=== PATIENT | male | born 1980 | race Caucasian/White ===

== ENCOUNTER 2019-01-19 12:00 | Inpatient (IN) | payer OTHER ==
[~2019-01-19] VITALS: Ht 190.5 cm; Wt 97.5 kg
--- NOTE | 2019-01-19 12:03 | NUR ---
HEART RATE IN 170'S. NOTIFIED DR ANNA. DR ANNA AT BEDSIDE. PATIENT DENIES ILLICIT DRUG USE.
--- OUTSIDE RECORDS SUMMARY | 2019-01-19 12:03 | XMS REPORT ---
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
--- OUTSIDE RECORDS SUMMARY | 2019-01-19 12:03 | XMS REPORT ---
Author Author Moses Barnett [facility] eClinicalWorks Address Unknown Phone Unavailable Care Team Providers Care Dietitian Teaching Name Role Phone Moses Barnett CP Unavailable Allergies, Adverse Reactions, Alerts Substance Reaction Event Type N.K.D.A. 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
--- OUTSIDE RECORDS SUMMARY | 2019-01-19 12:03 | XMS REPORT ---
Author Author Moses Barnett [facility] eClinicalWorks Address Unknown Phone Unavailable Care Team Providers Care Surface Water Technician Name Role Phone oMses Barnett CP Unavailable Allergies, Adverse Reactions, Alerts Substance Reaction Event Type N.K.D.A. 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
--- OUTSIDE RECORDS SUMMARY | 2019-01-19 12:03 | XMS REPORT ---
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
--- OUTSIDE RECORDS SUMMARY | 2019-01-19 12:03 | XMS REPORT ---
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
--- OUTSIDE RECORDS SUMMARY | 2019-01-19 12:03 | XMS REPORT ---
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
--- OUTSIDE RECORDS SUMMARY | 2019-01-19 12:03 | XMS REPORT ---
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
--- OUTSIDE RECORDS SUMMARY | 2019-01-19 12:03 | XMS REPORT ---
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
--- OUTSIDE RECORDS SUMMARY | 2019-01-19 12:03 | XMS REPORT ---
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
--- OUTSIDE RECORDS SUMMARY | 2019-01-19 12:03 | XMS REPORT ---
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
--- OUTSIDE RECORDS SUMMARY | 2019-01-19 12:03 | XMS REPORT ---
Author Author Moses Barnett [facility] eClinicalWorks Address Unknown Phone Unavailable Care Team Providers Care Freight Elevator Operator Name Role Phone Moses Barnett CP Unavailable Allergies, Adverse Reactions, Alerts Substance Reaction Event Type N.K.D.A. 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
--- OUTSIDE RECORDS SUMMARY | 2019-01-19 12:03 | XMS REPORT ---
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
--- OUTSIDE RECORDS SUMMARY | 2019-01-19 12:03 | XMS REPORT ---
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
--- OUTSIDE RECORDS SUMMARY | 2019-01-19 12:03 | XMS REPORT ---
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
--- OUTSIDE RECORDS SUMMARY | 2019-01-19 12:03 | XMS REPORT ---
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
--- OUTSIDE RECORDS SUMMARY | 2019-01-19 12:03 | XMS REPORT ---
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
--- OUTSIDE RECORDS SUMMARY | 2019-01-19 12:03 | XMS REPORT | Continuity of Care Document ---
Author Author [employer] Address Unknown Phone Unavailable Care Team Providers Care Meat Cutting Teacher Name Role Phone [employer] Unavailable Unavailable Problems Problem Status Onset Date Classification Date Reported Comments Source Primary insomnia Active Problem 10/10/2018 eCW: [facility] Neuropathy of left upper extremity Active Problem 10/10/2018 eCW: [facility] Cervical herniated disc Active Problem 10/10/2018 eCW: [facility] Hypersomnia Active Problem 10/10/2018 eCW: [facility] Elevated blood pressure reading Active Diagnosis 05/10/2017 eCW: [facility] Left upper quadrant pain Active Diagnosis 08/31/2017 eCW: [facility] Other specified counseling Active Diagnosis 04/22/2015 eCW: [facility] Pain in joint involving right pelvic region and thigh Active Diagnosis 09/30/2015 eCW: [facility] Right knee pain Active Diagnosis 09/30/2015 eCW: [facility] Neck pain Active Diagnosis 09/30/2015 eCW: [facility] Left foot pain Active Diagnosis 09/30/2015 eCW: [facility] Encounter for screening Active Diagnosis 07/30/2016 eCW: [facility] Exposure to sexually transmitted disease (STD) Active Diagnosis 03/11/2016 eCW: [facility] Hordeolum externum of left upper eyelid Active Diagnosis 05/10/2018 eCW: [facility] Medications Medication Details Route Status Patient Instructions Ordering Provider Order Date Source SMZ-TMP DS 1 tab(s) orally Active 800 mg-160 mg orally 2 times a day Barnett eCW: [facility] Allergies, Adverse Reactions, Alerts Substance Category Reaction Severity Reaction type Status Date Reported Comments Source N.K.D.A. Adverse Reaction Info Not Available Adverse Reaction Active 05/01/2018 eCW: [facility] Immunizations No Data Provided for This Section Results No Data Provided for This Section Pathology Reports No Data Provided for This Section Diagnostic Reports No Data Provided for This Section Consultation Notes No Data Provided for This Section Discharge Summaries No Data Provided for This Section History and Physicals No Data Provided for This Section Vital Signs Vital Sign Value Date Comments Source Height 75 05/01/2018 eCW: [facility] Weight 215 05/01/2018 eCW: [facility] Temperature Oral (F) 96.3 F 05/01/2018 eCW: [facility] Diastolic (mm Hg) 72 05/01/2018 eCW: [facility] Systolic (mm Hg) 124 05/01/2018 eCW: [facility] Height 75 08/23/2017 eCW: [facility] Weight 225 08/23/2017 eCW: [facility] Temperature Oral (F) 96.8 F 08/23/2017 eCW: [facility] Diastolic (mm Hg) 90 08/23/2017 eCW: [facility] Systolic (mm Hg) 126 08/23/2017 eCW: [facility] Height 75 05/02/2017 eCW: [facility] Weight 222 05/02/2017 eCW: [facility] Temperature Oral (F) 97.0 F 05/02/2017 eCW: [facility] Diastolic (mm Hg) 70 05/02/2017 eCW: [facility] Systolic (mm Hg) 124 05/02/2017 eCW: [facility] Height 75 12/01/2016 eCW: [facility] Weight 215 12/01/2016 eCW: [facility] Temperature Oral (F) 97.4 F 12/01/2016 eCW: [facility] Diastolic (mm Hg) 80 12/01/2016 eCW: [facility] Systolic (mm Hg) 132 12/01/2016 eCW: [facility] Height 75 07/22/2016 eCW: [facility] Weight 212 07/22/2016 eCW: [facility] Temperature Oral (F) 96.8 F 07/22/2016 eCW: [facility] Diastolic (mm Hg) 90 07/22/2016 eCW: [facility] Systolic (mm Hg) 126 07/22/2016 eCW: [facility] Height 75 02/13/2016 eCW: [facility] Weight 207 02/13/2016 eCW: [facility] Temperature Oral (F) 97.3 F 02/13/2016 eCW: [facility] Diastolic (mm Hg) 82 02/13/2016 eCW: [facility] Systolic (mm Hg) 140 02/13/2016 eCW: [facility] Height 75 09/25/2015 eCW: [facility] Weight 202 09/25/2015 eCW: [facility] Temperature Oral (F) 97.2 F 09/25/2015 eCW: [facility] Diastolic (mm Hg) 90 09/25/2015 eCW: [facility] Systolic (mm Hg) 140 09/25/2015 eCW: [facility] Height 75 04/10/2015 eCW: [facility] Weight 190 04/10/2015 eCW: [facility] Temperature Oral (F) 962 F 04/10/2015 eCW: [facility] Diastolic (mm Hg) 82 04/10/2015 eCW: [facility] Systolic (mm Hg) 118 04/10/2015 eCW: [facility] Encounters Location Location Details Encounter Type Encounter Number Reason For Visit Attending Provider ADM Date DC Date Status Source [facility] Est care- referral [id number] 04/10/2015 04/10/2015 eCW: [facility] Est care- referral [id number] 04/10/2015 04/10/2015 eCW: [facility] Est care- referral [id number] 04/10/2015 04/10/2015 eCW: [facility] Est care- referral [id number] 04/10/2015 04/10/2015 eCW: [facility] Est care- referral [id number] 04/10/2015 04/10/2015 eCW: [facility] Est care- referral [id number] 04/10/2015 04/10/2015 eCW: [facility] Outpatient [id number] Moses Barnett 09/25/2015 Active [facility] poss hernia [id number] 09/25/2015 09/25/2015 eCW: [facility] poss hernia [id number] 09/25/2015 09/25/2015 eCW: [facility] poss hernia [id number] 09/25/2015 09/25/2015 eCW: [facility] poss hernia [id number] 09/25/2015 09/25/2015 eCW: [facility] Messge [id number] 09/26/2015 09/26/2015 eCW: [facility] Messge [id number] 09/26/2015 09/26/2015 eCW: [facility] Messge [id number] 09/26/2015 09/26/2015 eCW: [facility] Messge [id number] 09/26/2015 09/26/2015 eCW: [facility] Messge [id number] 09/26/2015 09/26/2015 eCW: [facility] doctors note [id number] 12/08/2015 12/08/2015 eCW: [facility] doctors note [id number] 12/08/2015 12/08/2015 eCW: [facility] doctors note [id number] 12/08/2015 12/08/2015 eCW: [facility] STD check - fasting labs [id number] 02/13/2016 02/13/2016 eCW: [facility] STD check - fasting labs [id number] 02/13/2016 02/13/2016 eCW: [facility] left side shoulder/neck pain causing numbness and tingling in left hand and arm [id number] 07/22/2016 07/22/2016 eCW: [facility] Procedures No Data Provided for This Section Assessment and Plan No Data Provided for This Section Plan of Care No Data Provided for This Section Social History Social History Date Source Social History ElementQualifiersDate Reported Advance Directive . pt has living will July 22, 2016 Difficulty with eating/meal preparation . No July 22, 2016 Smoke Exposure: . Second Hand Smoke Exposure: No July 22, 2016 Difficulty with bathing/grooming . No July 22, 2016 Ambulatory Status: . Independent July 22, 2016 Current Physical Activity as compared to last year: . None July 22, 2016 Tobacco Use: No. Are you a: never smoker July 22, 2016 Physical Activity: . Exercises Regularly No, Recommend exercising 10 to 20 minutes everyday Yes July 22, 2016 Children: . 1 daughter July 22, 2016 Marital Status: . July 22, 2016 Recreational/Illicit drug use: no. July 22, 2016 Alcohol: yes. occasionally July 22, 2016 07/22/2016 eCW: [facility] Family History Value Date Source QualifierDescriptionCommentDate Reported Maternal Grand Mother Comment not available July 22, 2016 Paternal Grand Mother Comment not available July 22, 2016 Siblings alive Melanoma July 22, 2016 Maternal Grand Father Comment not available July 22, 2016 Children alive Comment not available July 22, 2016 Maternal aunt Comment not available July 22, 2016 Father alive healthy July 22, 2016 Paternal Grand Father Comment not available July 22, 2016 Paternal uncle Comment not available July 22, 2016 Mother alive Comment not available July 22, 2016 Paternal aunt Comment not available July 22, 2016 Maternal uncle Comment not available July 22, 2016 07/30/2016 eCW: [facility] [employer] [facility] Practice QualifierDescriptionCommentDate Reported Maternal Grand Mother Comment not available Feb 13, 2016 Paternal Grand Mother Comment not available Feb 13, 2016 Siblings alive Melanoma Feb 13, 2016 Maternal Grand Father Comment not available Feb 13, 2016 Children alive Comment not available Feb 13, 2016 Maternal aunt Comment not available Feb 13, 2016 Father alive healthy Feb 13, 2016 Paternal Grand Father Comment not available Feb 13, 2016 Paternal uncle Comment not available Feb 13, 2016 Mother alive Comment not available Feb 13, 2016 Paternal aunt Comment not available Feb 13, 2016 Maternal uncle Comment not available Feb 13, 2016 03/11/2016 eCW: [facility] [employer] [facility] Practice QualifierDescriptionCommentDate Reported Maternal Grand Mother Comment not available September 25, 2015 Paternal Grand Mother Comment not available September 25, 2015 Siblings alive Melanoma September 25, 2015 Maternal Grand Father Comment not available September 25, 2015 Children alive Comment not available September 25, 2015 Maternal aunt Comment not available September 25, 2015 Father alive healthy September 25, 2015 Paternal Grand Father Comment not available September 25, 2015 Paternal uncle Comment not available September 25, 2015 Mother alive Comment not available September 25, 2015 Paternal aunt Comment not available September 25, 2015 Maternal uncle Comment not available September 25, 2015 09/30/2015 eCW: [facility] [employer] [facility] Practice QualifierDescriptionCommentDate Reported Maternal Grand Mother Comment not available Apr 10, 2015 Paternal Grand Mother Comment not available Apr 10, 2015 Siblings alive Melanoma Apr 10, 2015 Maternal Grand Father Comment not available Apr 10, 2015 Children alive Comment not available Apr 10, 2015 Maternal aunt Comment not available Apr 10, 2015 Father alive healthy Apr 10, 2015 Paternal Grand Father Comment not available Apr 10, 2015 Paternal uncle Comment not available Apr 10, 2015 Mother alive Comment not available Apr 10, 2015 Paternal aunt Comment not available Apr 10, 2015 Maternal uncle Comment not available Apr 10, 2015 04/22/2015 eCW: [facility] [employer] [facility] Practice Advance Directives No Data Provided for This Section Functional Status No Data Provided for This Section
--- OUTSIDE RECORDS SUMMARY | 2019-01-19 12:03 | XMS REPORT ---
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
--- OUTSIDE RECORDS SUMMARY | 2019-01-19 12:03 | XMS REPORT ---
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
--- OUTSIDE RECORDS SUMMARY | 2019-01-19 12:03 | XMS REPORT | CCD ---
Author Author Auto Generated Organization [facility] Address Unknown Phone Unavailable Care Team Providers Care Operating Room Orderly Name Role Phone Moses Barnett CP [phone] Results Radiology Reports Exam Date Time Procedure Performing Provider Status 09/25/2015 09:56:29 XR Spine Cervical Comp w/ Obliques [id number] Chao Santiago (Verified) Notes: (XR Spine Cervical Comp w/ Obliques [id number]) Reason For Exam: NECK PAIN, RIGHT KNE E PAIN FINAL REPORT EXAM DESCRIPTION: Cervical spine, five views,09/25/2015 CLINICAL HISTORY: 35 y/o M M54.2 neck pain COMPARISON: None FINDINGS: There is straightening of the cervical spine. The prevertebral soft tissues appe ar normal. The vertebral body heights and intervertebral disc spaces are maintai allyson. Small anterior osteophytes on the C6 and C7 vertebral bodies indicate mild bony degenerative change. Oblique radiographs show uncinate osteophytes encroach ing upon the right C5-6 and C6-7 neural foramina. IMPRESSION: Mild bony degenerative changes are noted in the lower cervical spine. Straighten ing of the cervical spine may be related to patient positioning or muscle spasm. Electronically signed by: Pradeep Zhou MD 09/25/2015 11:02 Final Dictated by: Pradeep Zhou MD Dictated DT/TM: 09/25/2015 11:02 am Signed by: Pradeep Zhou MD Signed (Electronic Signature): 09/25/2015 11:02 am Transcribed by: MAURA Exam Date Time Procedure Performing Provider Status 09/25/2015 09:56:29 XR Knee 3 Views Right [id number] Chao Santiago (Verified) Notes: (XR Knee 3 Views Right [id number]) Reason For Exam: NECK PAIN, RIGHT KNEE PAIN FINAL REPORT EXAM DESCRIPTION: Right knee, three views,09/25/2015 CLINICAL HISTORY: 35 y/o M M25.561 right knee pain COMPARISON: None FINDINGS: No osseous abnormalities or radiopaque foreign bodies are seen about the right k nee. IMPRESSION: Normal study. Electronically signed by: Pradeep Zhou MD 09/25/2015 10:58 Final Dictated by: Pradeep Zhou MD Dictated DT/TM: 09/25/2015 10:58 am Signed by: Pradeep Zhou MD Signed (Electronic Signature): 09/25/2015 10:58 am Transcribed by: MAURA
--- OUTSIDE RECORDS SUMMARY | 2019-01-19 12:03 | XMS REPORT ---
Author Author Moses Barnett [facility] eClinicalWorks Address Unknown Phone Unavailable Care Team Providers Care Cylinder Press Operator Helper Name Role Phone Moses Barnett CP Unavailable Allergies, Adverse Reactions, Alerts Substance Reaction Event Type N.K.D.A. Info Not Available Non Drug Allergy Problems Problem Type Condition Code Onset Dates Condition Status Problem Cervical herniated disc M50.20 Active Problem Neuropathy of left upper extremity G56.92 Active Problem Hypersomnia G47.10 Active Assessment Hypersomnia G47.10 Active Problem Primary insomnia F51.01 Active Assessment Left upper quadrant pain R10.12 Active Medications No Known Medications Vital Signs Date/Time: August 23, 2017 Height 75 in Weight 225 lbs Temperature 96.8 F BMI 28.12 Index Blood Pressure Diastolic 90 mm Hg Blood Pressure Systolic 126 mm Hg Results Name Result Date Reference Range Unit Abnormality Flag Q-AMYLASE ----AMYLASE 31 20170823 21-101 U/L N Q-LIPASE ----LIPASE 14 [id number] 7-60 U/L N Q-CMP W/EGFR ----ALBUMIN/GLOBULIN RATIO 1.8 [id number] 1.0-2.5 (calc) N ----GLOBULIN 2.6 78244508 1.9-3.7 g/dL (calc) N ----ALKALINE PHOSPHATASE 56 20170823 40-115 U/L N ----BILIRUBIN, TOTAL 0.6 42438136 0.2-1.2 mg/dL N ----CHLORIDE 105 75447919 98-110 mmol/L N ----ALT 42 04924924 9-46 U/L N ----POTASSIUM 4.5 20170823 3.5-5.3 mmol/L N ----AST 20 20170823 10-40 U/L N ----SODIUM 139 [id number] 135-146 mmol/L N ----BUN/CREATININE RATIO NOT APPLICABLE 20170823 6-22 (calc) ----eGFR 101 20170823 > OR=60 mL/min/1.73m2 N ----CALCIUM 9.5 17160923 8.6-10.3 mg/dL N ----CARBON DIOXIDE 26 20170823 20-31 mmol/L N ----ALBUMIN 4.7 44428406 3.6-5.1 g/dL N ----PROTEIN, TOTAL 7.3 62028646 6.1-8.1 g/dL N ----GLUCOSE 95 91824024 65-99 mg/dL N ----UREA NITROGEN (BUN) 17 10817865 7-25 mg/dL N ----CREATININE 1.07 90942737 0.60-1.35 mg/dL N ----eGFR NON-AFR. CITIZEN [place] 87 20170823 > OR=60 mL/min/1.73m2 N Q-CBC (INCLUDES DIFF/PLT) ----MCHC 34.5 93213279 32.0-36.0 g/dL N ----MCH 29.9 39692797 27.0-33.0 pg N ----PLATELET COUNT 262 54235345 140-400 Thousand/uL N ----RDW 12.8 23781082 11.0-15.0 % N ----BASOPHILS 1.7 23654807 % N ----ABSOLUTE NEUTROPHILS 2778 65216915 8215-1127 cells/uL N ----ABSOLUTE LYMPHOCYTES 2220 39238706 850-3900 cells/uL N ----MPV 8.4 53607211 7.5-12.5 fL N ----ABSOLUTE BASOPHILS 102 53758846 0-200 cells/uL N ----HEMATOCRIT 44.4 23736088 38.5-50.0 % N ----NEUTROPHILS 46.3 85662402 % N ----MCV 86.7 95277346 80.0-100.0 fL N ----RED BLOOD CELL COUNT 5.12 67863265 4.20-5.80 Million/uL N ----ABSOLUTE MONOCYTES 510 44200349 200-950 cells/uL N ----ABSOLUTE EOSINOPHILS 390 62290519 15-500 cells/uL N ----HEMOGLOBIN 15.3 70385619 13.2-17.1 g/dL N ----EOSINOPHILS 6.5 35351770 % N ----WHITE BLOOD CELL COUNT 6.0 20170823 3.8-10.8 Thousand/uL N ----LYMPHOCYTES 37.0 46484650 % N ----MONOCYTES 8.5 45515647 % N Summary Purpose eClinicalWorks Submission
--- OUTSIDE RECORDS SUMMARY | 2019-01-19 12:03 | XMS REPORT ---
Author Author Moses Barnett [facility] eClinicalWorks Address Unknown Phone Unavailable Care Team Providers Care Gripper Installer Name Role Phone Moses Barnett CP Unavailable Allergies No Known Allergies Problems Problem Type Condition Code Onset Dates Condition Status Problem Cervical herniated disc M50.20 Active Problem Neuropathy of left upper extremity G56.92 Active Problem Hypersomnia G47.10 Active Problem Primary insomnia F51.01 Active Medications No Known Medications Results No Known Results Summary Purpose eClinicalWorks Submission
--- OUTSIDE RECORDS SUMMARY | 2019-01-19 12:03 | XMS REPORT ---
Author Author Moses Barnett [facility] eClinicalWorks Address Unknown Phone Unavailable Care Team Providers Care Advanced Practice Nurse Psychotherapist Name Role Phone Moses Barnett CP Unavailable Allergies No Known Allergies Problems Problem Type Condition Code Onset Dates Condition Status Problem Primary insomnia F51.01 Active Problem Neuropathy of left upper extremity G56.92 Active Medications No Known Medications Results No Known Results Summary Purpose eClinicalWorks Submission
--- OUTSIDE RECORDS SUMMARY | 2019-01-19 12:03 | XMS REPORT ---
Author Author Moses Barntet [facility] eClinicalWorks Address Unknown Phone Unavailable Care Team Providers Care Net Technical Architect Name Role Phone Moses Barnett CP Unavailable Allergies No Known Allergies Problems Problem Type Condition Code Onset Dates Condition Status Problem Neuropathy of left upper extremity G56.92 Active Problem Primary insomnia F51.01 Active Problem Cervical herniated disc M50.20 Active Medications No Known Medications Results No Known Results Summary Purpose eClinicalWorks Submission
--- OUTSIDE RECORDS SUMMARY | 2019-01-19 12:03 | XMS REPORT ---
Author Author Moses Barnett [facility] eClinicalWorks Address Unknown Phone Unavailable Care Team Providers Care Hand Almond Blancher Name Role Phone Moses Barnett CP Unavailable Allergies No Known Allergies Problems Problem Type Condition Code Onset Dates Condition Status Problem Cervical herniated disc M50.20 Active Problem Neuropathy of left upper extremity G56.92 Active Problem Hypersomnia G47.10 Active Problem Primary insomnia F51.01 Active Medications No Known Medications Results No Known Results Summary Purpose eClinicalWorks Submission
--- OUTSIDE RECORDS SUMMARY | 2019-01-19 12:03 | XMS REPORT ---
Author Author Moses Barnett [facility] eClinicalWorks Address Unknown Phone Unavailable Care Team Providers Care City Superintendent Name Role Phone Moses Barnett CP Unavailable Allergies No Known Allergies Problems Problem Type Condition Code Onset Dates Condition Status Problem Cervical herniated disc M50.20 Active Problem Neuropathy of left upper extremity G56.92 Active Problem Hypersomnia G47.10 Active Problem Primary insomnia F51.01 Active Medications No Known Medications Results No Known Results Summary Purpose eClinicalWorks Submission
--- OUTSIDE RECORDS SUMMARY | 2019-01-19 12:03 | XMS REPORT ---
Author Author Moses Barnett [facility] eClinicalWorks Address Unknown Phone Unavailable Care Team Providers Care Soda Clerk Name Role Phone Moses Barnett CP Unavailable Allergies No Known Allergies Problems Problem Type Condition Code Onset Dates Condition Status Problem Neuropathy of left upper extremity G56.92 Active Problem Primary insomnia F51.01 Active Problem Cervical herniated disc M50.20 Active Medications No Known Medications Results No Known Results Summary Purpose eClinicalWorks Submission
--- OUTSIDE RECORDS SUMMARY | 2019-01-19 12:04 | XMS REPORT ---
Author Author Moses Barnett [facility] eClinicalWorks Address Unknown Phone Unavailable Care Team Providers Care House Repairer Name Role Phone Moses Barnett Unavailable Encounters Encounter Location Date doctors note [facility] December 08, 2015 Est care- referral [facility] Apr 10, 2015 Messge [facility] September 26, 2015 poss hernia [facility] September 25, 2015 Problems Problem Type Condition ICD-9 Code Onset Dates Condition Status Problem Primary insomnia F51.01 Active Social History Social History Element Qualifiers Date Reported Advance Directive . pt has living will September 25, 2015 Difficulty with eating/meal preparation . No September 25, 2015 Difficulty with bathing/grooming . No September 25, 2015 Ambulatory Status: . Independent September 25, 2015 Current Physical Activity as compared to last year: . None September 25, 2015 Tobacco Use: No. September 25, 2015 Physical Activity: . Exercises Regularly No, Recommend exercising 10 to 20 minutes everyday Yes September 25, 2015 Children: . 1 daughter September 25, 2015 Marital Status: . September 25, 2015 Recreational/Illicit drug use: no. September 25, 2015 Alcohol: yes. occasionally September 25, 2015 Summary Purpose eClinicalWorks Submission
--- OUTSIDE RECORDS SUMMARY | 2019-01-19 12:04 | XMS REPORT ---
Author Author Moses Barnett [facility] eClinicalWorks Address Unknown Phone Unavailable Care Team Providers Care Rug Dyer Name Role Phone Moses Barnett Unavailable Encounters Encounter Location Date Est care- referral [facility] Apr 10, 2015 Problems Problem Type Condition ICD-9 Code Onset Dates Condition Status Assessment Other specified counseling Z71.89 Active Social History Social History Element Qualifiers Date Reported Difficulty with eating/meal preparation . No Apr 10, 2015 Difficulty with bathing/grooming . No Apr 10, 2015 Ambulatory Status: . Independent Apr 10, 2015 Current Physical Activity as compared to last year: . None Apr 10, 2015 Tobacco Use: No. Apr 10, 2015 Physical Activity: . Exercises Regularly No, Recommend exercising 10 to 20 minutes everyday Yes Apr 10, 2015 Children: . 1 daughter Apr 10, 2015 Marital Status: . Apr 10, 2015 Recreational/Illicit drug use: no. Apr 10, 2015 Alcohol: yes. occasionally Apr 10, 2015 Family history Qualifier Description Comment Date Reported Maternal Grand Mother Comment not available [...] uncle Comment not available Apr 10, 2015 Vital Signs Date/Time: Apr 10, 2015 Height 75 inches Weight 190 lbs Temperature 962 F Blood Pressure Diastolic 82 mm Hg Blood Pressure Systolic 118 mm Hg Summary Purpose eClinicalWorks Submission
--- OUTSIDE RECORDS SUMMARY | 2019-01-19 12:04 | XMS REPORT ---
Author Author Moses Barnett [facility] eClinicalWorks Address Unknown Phone Unavailable Care Team Providers Care Continuous Crusher Operator Name Role Phone Moses Barnett CP Unavailable Allergies No Known Allergies Problems Problem Type Condition Code Onset Dates Condition Status Problem Cervical herniated disc M50.20 Active Problem Neuropathy of left upper extremity G56.92 Active Problem Hypersomnia G47.10 Active Problem Primary insomnia F51.01 Active Medications No Known Medications Results No Known Results Summary Purpose eClinicalWorks Submission
--- OUTSIDE RECORDS SUMMARY | 2019-01-19 12:04 | XMS REPORT ---
Author Author Moses Barnett [facility] eClinicalWorks Address Unknown Phone Unavailable Care Team Providers Care Books Salesperson Name Role Phone Moses Barnett CP Unavailable Allergies, Adverse Reactions, Alerts Substance Reaction Event Type N.K.D.A. Info Not Available Non Drug Allergy Encounters Encounter Location Date doctors note [facility] December 08, 2015 STD check - fasting labs [facility] Feb 13, 2016 left side shoulder/neck pain causing numbness and tingling in left hand and arm [facility] July 22, 2016 Est care- referral [facility] Apr 10, 2015 Messge [facility] September 26, 2015 poss hernia [facility] September 25, 2015 Problems Problem Type Condition ICD-9 Code Onset Dates Condition Status Problem Primary insomnia F51.01 Active Assessment Neuropathy of left upper extremity G56.92 Active Problem Neuropathy of left upper extremity G56.92 Active Assessment Encounter for screening Z13.9 Active Social History Social History Element Qualifiers [...] 2016 Alcohol: yes. occasionally July 22, 2016 Family history Qualifier Description Comment Date Reported [...] uncle Comment not available July 22, 2016 Vital Signs Date/Time: July 22, 2016 Height 75 in Weight 212 lbs Temperature 96.8 F Blood Pressure Diastolic 90 mm Hg Blood Pressure Systolic 126 mm Hg Results Adv Directive Summary Purpose eClinicalWorks Submission
--- OUTSIDE RECORDS SUMMARY | 2019-01-19 12:04 | XMS REPORT ---
Author Author Moses Barnett [facility] eClinicalWorks Address Unknown Phone Unavailable Care Team Providers Care Cordwood Cutter Name Role Phone Moses Barnett Unavailable Encounters Encounter Location Date Est care- referral [facility] Apr 10, 2015 Messge [facility] September 26, 2015 poss hernia [facility] September 25, 2015 Problems Problem Type Condition ICD-9 Code Onset Dates Condition Status Assessment Pain in joint involving right pelvic region and thigh M25.551 Active Assessment Right knee pain M25.561 Active Assessment Neck pain M54.2 Active Assessment Left foot pain M79.672 Active Assessment Encounter for screening Z13.9 Active [...] 2015 Alcohol: yes. occasionally September 25, 2015 Family history Qualifier Description Comment Date [...] uncle Comment not available September 25, 2015 Vital Signs Date/Time: September 25, 2015 Height 75 inches Weight 202 lbs Temperature 97.2 F Blood Pressure Diastolic 90 mm Hg Blood Pressure Systolic 140 mm Hg Results Adv Directive X ray : Knee, right Summary Purpose eClinicalWorks Submission
--- OUTSIDE RECORDS SUMMARY | 2019-01-19 12:04 | XMS REPORT ---
Author Author Moses Barnett [facility] eClinicalWorks Address Unknown Phone Unavailable Care Team Providers Care Deputy Clerk Of Court Name Role Phone Moses Barnett CP Unavailable Allergies, Adverse Reactions, Alerts Substance Reaction Event Type N.K.D.A. Info Not Available Non Drug Allergy Encounters Encounter Location Date doctors note [facility] December 08, 2015 STD check - fasting labs [facility] Feb 13, 2016 Est care- referral [facility] Apr 10, 2015 Messge [facility] September 26, 2015 poss hernia [facility] September 25, 2015 Problems Problem Type Condition ICD-9 Code Onset Dates Condition Status Assessment Exposure to sexually transmitted disease (STD) Z20.2 Active Problem Primary insomnia F51.01 Active Social History Social History Element Qualifiers Date Reported Advance Directive . pt has living will Feb 13, 2016 Difficulty with eating/meal preparation . No Feb 13, 2016 Smoke Exposure: . Second Hand Smoke Exposure: No Feb 13, 2016 Difficulty with bathing/grooming . No Feb 13, 2016 Ambulatory Status: . Independent Feb 13, 2016 Current Physical Activity as compared to last year: . None Feb 13, 2016 Tobacco Use: No. Are you a: nonsmoker Feb 13, 2016 Physical Activity: . Exercises Regularly No, Recommend exercising 10 to 20 minutes everyday Yes Feb 13, 2016 Children: . 1 daughter Feb 13, 2016 Marital Status: . Feb 13, 2016 Recreational/Illicit drug use: no. Feb 13, 2016 Alcohol: yes. occasionally Feb 13, 2016 Family history Qualifier Description Comment Date [...] uncle Comment not available Feb 13, 2016 Vital Signs Date/Time: Feb 13, 2016 Height 75 in Weight 207 lbs Temperature 97.3 F Blood Pressure Diastolic 82 mm Hg Blood Pressure Systolic 140 mm Hg Results Q-RPR (DX) W/REFL TITER AND CONFIRMATORY TESTING RPR (DX) W/REFL TITER AND CONFIRMATORY TESTING(-NON-REACTIVE ) NON-REACTIVE Q-HEPATITIS PANEL, ACUTE W/REFLEX SIGNAL TO CUT-OFF(-<1.00 ) 0.02 HEPATITIS C ANTIBODY(-NON-REACTIVE ) NON-REACTIVE HEPATITIS A IGM(-NON-REACTIVE ) NON-REACTIVE HEPATITIS B CORE ANTIBODY (IGM)(-NON-REACTIVE ) NON-REACTIVE HEPATITIS B SURFACE ANTIGEN(-NON-REACTIVE ) NON-REACTIVE Q-HIV 1/2 EIA ANTIBODY SCREEN W/REFLEXES Q-HSV 1/2 IGG, HERPESELECT(TM) W/ REFLEX Summary Purpose eClinicalWorks Submission
[2019-01-19] MEDS ORDERED: DILTIAZEM HCL VIAL 5 ML ONE (12:08)
[2019-01-19] MEDS ORDERED: SODIUM CHLORIDE 0.9% 1000ML 1,000 ML ONE (12:08)
--- NOTE | 2019-01-19 12:08 | NUR ---
CARDIZEM 10MG IV GIVEN.
--- NOTE | 2019-01-19 12:14 | NUR ---
METORPOLOL 5MG IV GIVEN. TACHYCARDIC 140'S. DR ANNA AT BEDSIDE.
[2019-01-19] MEDS ORDERED: METOPROLOL TARTRATE INJ 1 MG/ML VIAL ONE (12:16)
--- NOTE | 2019-01-19 12:18 | NUR ---
REPEAT EKG IN PROGRESS. HEART RATE 90'S AFTER METOPROLOL. PATIENT AWAKE AND ALERT. RESP EVEN AND UNLABORED. SKIN PALE WARM AND DRY. DR ANNA AT BEDSIDE. NO SIGNS OF ACUTE DISTRESS NOTED AT THIS TIME.
[2019-01-19] MEDS ORDERED: ASPIRIN 81 MG CHEW TAB PO ONE ×3 (12:23→12:30)
[2019-01-19] MEDS ORDERED: SODIUM CHLORIDE 0.9% 1000ML 1,000 ML IV STA (12:23)
[2019-01-19] MEDS ORDERED: DILTIAZEM HCL 5 MG/ML 5 ML VIAL IV ONE (12:23)
[2019-01-19] MEDS ORDERED: METOPROLOL TARTRATE 25 MG TAB ONE ×2 (12:29→12:34)
[2019-01-19] MEDS ORDERED: METOPROLOL TARTRATE INJ 1 MG/ML VIAL IV ONE (12:30)
[2019-01-19] MEDS ORDERED: METOPROLOL SUCCINATE 25 MG TAB XL PO ONE (12:30)
[2019-01-19] MEDS ORDERED: METOPROLOL TARTRATE 25 MG TAB PO ONE (12:45)
[2019-01-19 12:49] LABS: BASOPHILS # (AUTO) 0.1 (0.0-0.1); BASOPHILS % 0.8 % (0.0-1.0); EOSINOPHILS # (AUTO) 0.3 (0.0-0.4); EOSINOPHILS % 4.5 % (0.0-6.0); HEMATOCRIT 41.9 % (38.2-49.6); HEMOGLOBIN 14.6 g/dL (14.0-18.0); LYMPHOCYTES # (AUTO) 1.9 (1.0-3.2); LYMPHOCYTES % 30.5 % (18.0-39.1); MEAN CORPUSCULAR HEMOGLOBIN 29.9 pg (28-32); MEAN CORPUSCULAR HGB CONC 34.8 g/dL (31-35); MEAN CORPUSCULAR VOLUME 85.7 fL (81-99); MONOCYTES # (AUTO) 0.5 (0.2-0.8); MONOCYTES % 7.9 % (4.4-11.3); NEUTROPHILS # (AUTO) 3.5 (2.1-6.9); NEUTROPHILS % 56.1 % (38.7-80.0); PLATELET COUNT 297 x10e3/uL (140-360); RED BLOOD COUNT 4.89 x10e6/uL (4.3-5.7); RED CELL DISTRIBUTION WIDTH 12.1 % (11.7-14.4)
[2019-01-19 12:59] LABS: INR 0.89; PROTHROMBIN TIME 12.5 seconds (11.9-14.5)
[2019-01-19 13:00] LABS: PARTIAL THROMBOPLASTIN TIME 30.4 seconds (23.8-35.5)
[2019-01-19] MEDS ORDERED: AMIODARONE HCL 150 MG/100 ML BAG IV ONE (13:00)
[2019-01-19] MEDS ORDERED: ENOXAPARIN SODIUM INJ 100 MG/ML SYR SC SCH (13:00)
[2019-01-19] MEDS ORDERED: AMIODARONE HCL 900 MG in DEXTROSE 5% 500ML 500 ML IV SCH (13:00)
[2019-01-19 13:09] LABS: BILIRUBIN,URINE NEGATIVE (NEGATIVE); CLARITY,URINE CLEAR (CLEAR); COLOR,URINE YELLOW (YELLOW); KETONES,URINE NEGATIVE (NEGATIVE); LEUKOCYTE ESTERASE ,URINE NEGATIVE (NEGATIVE); NITRITE,URINE NEGATIVE (NEGATIVE); PROTEIN,URINE DIPSTICK NEGATIVE (NEGATIVE); URINE UROBILINOGEN 0.2 mg/dL (0.2 - 1)
[2019-01-19 13:10] LABS: ALANINE AMINOTRANSFERASE 33 IU/L (0-55); ALBUMIN 4.5 g/dL (3.5-5.0); ALBUMIN/GLOBULIN RATIO 1.6 (0.8-2.0); ALKALINE PHOSPHATASE 56 IU/L (40-150); ANION GAP 16.3 mmol/L (8-16); BLOOD UREA NITROGEN 13 mg/dL (7-26); BUN/CREATININE RATIO 10 (6-25); CALCIUM 9.7 mg/dL (8.4-10.2); CARBON DIOXIDE 25 mmol/L (22-29); CHLORIDE 101 mmol/L (98-107); CREATINE KINASE 109 IU/L (30-200); CREATININE, SERUM 1.24 mg/dL (0.72-1.25); EST GLOMERULAR FILTRATION RATE > 60 ML/MIN (60-); GLUCOSE 104 mg/dL (74-118); POTASSIUM 4.3 mmol/L (3.5-5.1); SODIUM 138 mmol/L (136-145)
[2019-01-19 13:13] LABS: AMPHETAMINES SCREEN,URINE NEGATIVE (NEGATIVE); BENZODIAZEPINES SCREEN,URINE NEGATIVE (NEGATIVE); PHENCYCLIDINE SCREEN,URINE NEGATIVE (NEGATIVE)
[2019-01-19] MEDS ORDERED: AMIODARONE HCL 150 MG in DEXTROSE 5% 100ML 100 ML IV ONE (13:15)
[2019-01-19 13:27] LABS: EPITHELIAL CELLS,URINE RARE /LPF
[2019-01-19 13:29] LABS: THYROID STIMULATING HORMONE 1.934 uIU/mL (0.350-4.940)
[2019-01-19] MEDS: AMIODARONE HCL 900 MG in DEXTROSE 5 % 500ML BOTTLE 500 ML IV SCH ×2 (13:40→18:26)
[2019-01-19] MEDS ORDERED: NITROGLYCERIN 0.4 MG SUBL SL PRN (14:00)
--- OUTSIDE RECORDS SUMMARY | 2019-01-19 14:03 | XMS REPORT | Continuity of Care Document ---
Author Author [facility] Address Unknown Phone Unavailable Care Team Providers Care Stogie Packer Name Role Phone [employer] Unavailable Unavailable Problems Problem Status Onset Date Classification Date Reported Comments Source Primary insomnia Active Problem 10/10/2018 eCW: [facility] Neuropathy of left upper extremity Active Problem 10/10/2018 eCW: [facility] Cervical herniated disc Active Problem 10/10/2018 eCW: [facility] Hypersomnia Active Problem 10/10/2018 eCW: [facility] Elevated blood pressure reading Active Diagnosis 05/10/2017 eCW: [facility] Left upper quadrant pain Active Diagnosis 08/31/2017 eCW: [facility] Other specified counseling Active Diagnosis 04/22/2015 eCW: [facility] Pain in joint involving right pelvic region and thigh Active Diagnosis 09/30/2015 eCW: [facility] Right knee pain Active Diagnosis 09/30/2015 eCW: [facility] Neck pain Active Diagnosis 09/30/2015 eCW: [facility] Left foot pain Active Diagnosis 09/30/2015 eCW: [facility] Encounter for screening Active Diagnosis 07/30/2016 eCW: [facility] Exposure to sexually transmitted disease (STD) Active Diagnosis 03/11/2016 eCW: [facility] Hordeolum externum of left upper eyelid Active Diagnosis 05/10/2018 eCW: [facility] Medications Medication Details Route Status Patient Instructions Ordering Provider Order Date Source SMZ-TMP DS 1 tab(s) orally Active 800 mg-160 mg orally 2 times a day [place] eCW: [facility] Allergies, Adverse Reactions, Alerts Substance Category Reaction Severity Reaction type Status Date Reported Comments Source N.K.D.A. Adverse Reaction Info Not Available Adverse Reaction Active 05/01/2018 eCW: [facility] Immunizations No Data Provided for [...] ADM Date DC Date Status Source [facility] Est care- referral [id number] 04/10/2015 04/10/2015 eCW: [facility] Est care- referral [id number] 04/10/2015 04/10/2015 eCW: [facility] Est care- referral [id number] 04/10/2015 04/10/2015 eCW: [facility] Est care- referral [id number] 04/10/2015 04/10/2015 eCW: [facility] Est care- referral [id number] 04/10/2015 04/10/2015 eCW: [facility] Est care- referral [id number] 04/10/2015 04/10/2015 eCW: [facility] Outpatient [id number] Moses Barnett 09/25/2015 Active [facility] poss hernia [id number] 09/25/2015 09/25/2015 eCW: [facility] poss hernia [id number] 09/25/2015 09/25/2015 eCW: [facility] poss hernia [id number] 09/25/2015 09/25/2015 eCW: [facility] poss hernia [id number] 09/25/2015 09/25/2015 eCW: [facility] Messge [id number] 09/26/2015 09/26/2015 eCW: [facility] Messge [id number] 09/26/2015 09/26/2015 eCW: [facility] [id number] 09/26/2015 09/26/2015 eCW: [facility] [id number] 09/26/2015 09/26/2015 eCW: [facility] Messge [id number] 09/26/2015 09/26/2015 eCW: [facility] doctors note [id number] 12/08/2015 12/08/2015 eCW: [facility] doctors note [id number] 12/08/2015 12/08/2015 eCW: [facility] doctors note [id number] 12/08/2015 12/08/2015 eCW: [facility] STD check - fasting labs [id number] 02/13/2016 02/13/2016 eCW: [facility] STD check - fasting labs [id number] 02/13/2016 02/13/2016 eCW: [facility] left side shoulder/neck pain causing numbness and tingling in left hand and arm [id number] 07/22/2016 07/22/2016 eCW: [facility] Procedures No Data Provided for [...] yes. occasionally July 22, 2016 07/22/2016 eCW: [facility] Family History Value Date Source [...] not available July 22, 2016 07/30/2016 eCW: [facility] Practice QualifierDescriptionCommentDate Reported Maternal Grand Mother [...] not available Feb 13, 2016 03/11/2016 eCW: [facility] Practice QualifierDescriptionCommentDate Reported Maternal Grand Mother [...] not available September 25, 2015 09/30/2015 eCW: [facility] Practice QualifierDescriptionCommentDate Reported Maternal Grand Mother [...] not available Apr 10, 2015 04/22/2015 eCW: [facility] Practice Advance Directives No Data Provided for This Section Functional Status No Data Provided for This Section
--- OUTSIDE RECORDS SUMMARY | 2019-01-19 14:04 | XMS REPORT ---
Author Author Moses Barnett [facility] eClinical[employer] Address Unknown Phone Unavailable Care Team Providers Care Pharmacy Retail Support Specialist Name Role Phone Moses Barnett Unavailable Encounters Encounter Location Date Est care- referral [facility] Apr 10, 2015 [facility] September 26, 2015 Problems Problem Type Condition ICD-9 Code [...] 2015 Alcohol: yes. occasionally September 25, 2015 Vital Signs Date/Time: September 25, 2015 Height 75 inches Weight 202 lbs Temperature 97.2 F Blood Pressure Diastolic 90 mm Hg Blood Pressure Systolic 140 mm Hg Summary Purpose eClinicalWorks Submission
--- NOTE | 2019-01-19 15:01 | Diagnostic Imaging Report ---
Chest, 1 view, 01/19/2019. History: Tachycardia, tightness in chest. Comparison: None available. Findings: The cardiomediastinal silhouette and pulmonary vasculature are within normal limits for a portable exam. There is biapical pleural thickening. There is no focal consolidation or pleural effusion. There are no acute osseous or soft tissue abnormalities. Impression: No acute cardiopulmonary abnormality. Signed by: Delmar Lofton on 01/19/2019 2:58 PM
[2019-01-19] MEDS ORDERED: METOPROLOL TARTRATE 25 MG TAB PO SCH (16:00)
[2019-01-19 17:16] VITALS: BP 119/84
[2019-01-19 17:44] VITALS: BP 119/84
[2019-01-19 17:59] VITALS: BP 126/72
[2019-01-19] MEDS ORDERED: BENADRYL25 M1 PO (18:22)
[2019-01-19] MEDS ORDERED: TYLENOL325 MG PO (18:22)
[2019-01-19] MEDS ORDERED: VIAGRA50 MG PO (18:22)
[2019-01-19 18:39] LABS: CREATINE KINASE MB 0.9 ng/mL (0-5.0)
[2019-01-19] MEDS ORDERED: AMIODARONE HCL 900 MG in DEXTROSE 5 % 500ML BOTTLE 500 ML IV ONE (19:15)
--- NOTE | 2019-01-19 19:30 | NUR ---
patient recieved awake, alert, lying quietly in bed. vss. no c/o pain noted. iv amiodarone continues to infuse per orders without difficulty. pm assessment complete. patient instructed to call for assistance when needed.
[2019-01-19 20:00] VITALS: BP 123/88
[2019-01-19] MEDS: RIVAROXABAN 20 MG TABLET PO SCH (20:26)
[2019-01-19] MEDS: ONDANSETRON HCL INJ 2MG/ML 2ML 2 MG/ML VIAL IV PRN (20:30)
[2019-01-19] MEDS: MORPHINE SULFATE 2 MG/ML SYR 1ML IV PRN (20:30)
--- NOTE | 2019-01-19 20:30 | NUR ---
patient medicated with morphine 2mg and zofran 4mg ivp for c/o lower back pain at this time.
[2019-01-19] MEDS ORDERED: ACETAMINOPHEN 325 MG TAB PO PRN (21:00)
[2019-01-19] MEDS ORDERED: DIPHENHYDRAMINE HCL 25 MG CAP PO SCH (21:00)
[2019-01-19] MEDS ORDERED: ZOLPIDEM TARTRATE 5 MG TAB PO PRN (21:15)
--- NOTE | 2019-01-19 22:25 | Consultation ---
DATE OF CONSULTATION: 01/19/2019 REASON FOR CONSULTATION: Atrial fibrillation with RVR. CHIEF COMPLAINT: Palpitations/chest pain. HISTORY OF PRESENT ILLNESS: This is a 38-year-old male with no medical history. The patient presents to [facility] ER with complaints of palpitations, chest pain. I was noted an SVT with heart rates in the 250 range and was giving metoprolol and diltiazem IV and subsequently started on amiodarone drip. Cardiology was consulted to evaluate the patient. The patient is seen in the room and currently has a heart rate in the 80s and 90s, atrial fibrillation. He reports that he is feeling fine. He states about 8 or 10 this morning, started to feel lightheaded, dizzy after having his usual coffee and soda. Went to the nurse's station with off and on palpitations and lightheadedness, therefore came to the ER for further evaluation. Currently, the patient is comfortable. He reports he feels "great" and denies any chest pain at this time. No shortness of breath. PAST MEDICAL HISTORY: Denies. PAST SURGICAL HISTORY: Hernia repair and left knee repair. FAMILY HISTORY: Mother is alive. She has reported healthy. Father alive, age 71, history of atrial fibrillation. SOCIAL HISTORY: He is . He is retired from the . 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 He denies any tobacco use. Occasional alcohol use. MEDICATIONS: Denies any medications. ALLERGIES: DENIES ANY ALLERGIES. REVIEW OF SYSTEMS: GENERAL: Denies any weight changes, fevers, chills, night sweats. SKIN: No rash or sores. HEENT: No nausea, vomiting, vision change, blurred vision, double vision, epistaxis, swollen neck, sore throat, bleeding gums. CARDIAC: Chest pain as mentioned above, palpitations. Denies any orthopnea, PND, lower extremity edema. RESPIRATORY: Denies any shortness of breath, wheezing, coughing, hemoptysis. GASTROINTESTINAL: Reports good appetite. No nausea, vomiting, diarrhea, constipation, any melena, hematochezia. URINARY: Denies any frequency, urgency, polyuria, polydipsia. VASCULAR: Denies any lower extremity edema, claudication. MUSCULOSKELETAL: Denies any muscle weakness. Positive for generalized joint pains. NEUROLOGIC: Denies any tingling, tremors, weakness, paralysis, fainting. HEMATOLOGY: Denies any bruising, bleeding. ENDOCRINE: Denies any heat or cold intolerance. No polyuria, polydipsia, or polyphagia. PHYSICAL EXAMINATION: VITAL SIGNS: Height 75 inches, weighs 215 pounds. Current vital signs temperature 98.3, pulse 92, respiratory rate 18, blood pressure 111/77, and pulse ox 100% on 2 L nasal cannula. GENERAL: Appears stated age, reliable informant, in no acute distress. SKIN: No rashes or bruises noted. HEENT: Normocephalic. Pupils are equal and reactive. Extraocular movements intact. Trachea midline. Oral mucosa pink. No JVD. No carotid bruits noted. HEART: Irregular rate. Irregular rhythm. No murmurs, rubs, or clicks noted. LUNGS: Bilateral breath sounds, clear to auscultation. Good airway entry. ABDOMEN: Soft, nontender, nondistended. No organomegaly noted. MUSCULOSKELETAL: Good muscle strength throughout. No lower extremity edema noted. VASCULAR: +2 bilateral radial pulses, +2 DP and PT pulses bilaterally. NEUROLOGIC: Cranial nerves II through XII seem intact. LABORATORY DATA: Sodium 138, potassium 4.3, chloride 101, BUN 13, creatinine 1.2. Troponin is 0.013. BNP less than 10. TSH 1.9. White count 6, hemoglobin 14, hematocrit 41, and platelets 296. Urine drug screen negative. Chest x-ray, no acute abnormalities. EKG showing SVT with a heart rate of 250. ASSESSMENT: 1. Atrial fibrillation with rapid ventricular response. 2. Chest pain. PLAN: 1. The patient presents with symptomatic atrial fibrillation with rapid ventricular response, after receiving the diltiazem and metoprolol, currently on amiodarone drip, currently heart rates in the 80s and 90s, atrial fibrillation on tele. 2. We will get an echo to evaluate heart function and structure. 3. We will consult EP. 4. We will continue telemonitoring. 5. We will continue to monitor the patient and adjust cardiac therapy as indicated also. 6. We will go ahead and place the patient on Xarelto therapy. Thank you very much for this consult. Dictated by Mark Oseguera NP SEEN AND EXAMINED Ahmad M Jeroudi, MD [place] /[id number] MTDLyndsey
[2019-01-19] MEDS: METOPROLOL TARTRATE 25 MG TAB PO SCH (23:55)
[2019-01-20] VITALS: BP 118/72
--- NOTE | 2019-01-20 | NUR ---
patient ambulatory to snack machine. no c/o pain noted. amiodarone drip continues to infuse without difficulty. patient remains A FIB on the bedside monitor.
--- NOTE | 2019-01-20 02:00 | NUR ---
third cardiac markers and am ordered labs drawn at this time and taken to the lab.
[2019-01-20] MEDS: MORPHINE SULFATE 2 MG/ML SYR 1ML IV PRN (02:38)
[2019-01-20] MEDS: ONDANSETRON HCL INJ 2MG/ML 2ML 2 MG/ML VIAL IV PRN (02:38)
--- NOTE | 2019-01-20 02:38 | NUR ---
patient medicated with morphine 2mg and zofran 4mg ivp for c/o lower back pain 11/29 at this time.
[2019-01-20 04:00] VITALS: BP 111/75
--- NOTE | 2019-01-20 04:11 | History and Physical ---
CHIEF COMPLAINT: Palpitations. HISTORY OF PRESENT ILLNESS: This is a 38-year-old male, who has no past medical history, who presented to the emergency room department from the EMS with underlying palpitations, found to have a heart rate greater than 200. 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 He noticed that it was episodic on and off. He reports drinking soda water and a cup of coffee today, thinking that those drinks what caused his heart rate to go high. He did not think much of it and then his heart rate continued to feel very elevated and started having some chest pressure. He reported to the school nurse, the nurse checked his blood pressure and his heart rate and found to have an elevated heart rate in the 200s. EMS was called and his heart rate was elevated. Apparently, the rhythm was found to be atrial fibrillation. The patient was then brought into the [facility] ER for further evaluation and management. While here, his heart rate was elevated, found to be in atrial fibrillation, and was admitted and started on amiodarone drip. Cardiology was consulted. The patient reports that his father has atrial fibrillation as well and has had multiple ablations before. REVIEW OF SYSTEMS: Pertinent positives: Palpitations, chest pressure, and nausea. Pertinent negatives: Denies any vomiting, dysuria, hematuria, frequency, urgency, lightheadedness, dizziness, abdominal pain, headaches, shortness of breath, cough, congestion, fever, or any other complaints. The rest of the 14-point review of systems have been reviewed with the patient and are negative. ALLERGIES: NO KNOWN DRUG ALLERGIES. HOME MEDICATIONS: He just takes sildenafil for erectile dysfunction. PAST MEDICAL HISTORY: Erectile dysfunction. PAST SURGICAL HISTORY: None. FAMILY HISTORY: Hypertension and diabetes. Also, reports his father having history of atrial fibrillation with ablation in the past. SOCIAL HISTORY: No drugs. No alcohol. Does not smoke. Good social support. PHYSICAL EXAMINATION: VITAL SIGNS: Temperature is 97.6, pulse is 86, respiratory rate is 16, blood pressure , and pulse ox 97% on room air. GENERAL: Not in acute distress. Alert and oriented x3. Cooperative on examination. HEENT: Head is normocephalic and atraumatic. Eyes; pupils are equal, round, and reactive to light bilaterally. Extraocular movements are intact bilaterally. Throat, no evidence of erythema or exudates in the posterior pharynx. Has poor dentition. NECK: Supple. Good range of motion. PULMONARY: Clear to auscultation bilaterally. No wheezing, rales, or rhonchi. No crackles appreciated. CARDIOVASCULAR: Irregularly irregular rhythm. Rate is controlled. S1 and S2 are positive. No murmurs, rubs, or gallops appreciated. ABDOMEN: Soft, nondistended, and nontender to palpation. Bowel sounds present. MUSCULOSKELETAL: Strength is 5/5 throughout. No evidence of any muscle deficits on examination. No weakness appreciated. NEUROLOGIC: Cranial nerves II through XII grossly intact. No evidence of any neurological deficits on exam. SKIN: Intact. Warm to touch. Good cap refill. PSYCHIATRIC: Normal affect and mood. EXTREMITIES: No edema. Good range of motion throughout. LABORATORY DATA: Lab findings show white count of 6.1, hemoglobin of 14.6, hematocrit of 41.9, and platelets of 297. Coagulation; PT 12, INR 0.89, and PTT 30. D-dimer is less than 100. Chemistry; sodium 138, potassium 4.3, chloride 101, bicarb 25, anion gap of 16, BUN 13, creatinine is 1.2. Glucose is 104, calcium 9.7, magnesium is 2. LFTs within normal range. Troponins were negative. BNP was negative. TSH is 1.9. Urinalysis negative. Toxicology screen and urine drug screen were negative. Microbiology, urine cultures are pending. IMAGING STUDIES: Chest x-ray was negative. IMPRESSION: 1. New-onset atrial fibrillation. 2. Chest pressure secondary to new-onset atrial fibrillation. PLAN: At this time, he is currently in IMCU. Cardiology is consulted. He was started on oral Xarelto for anticoagulation. He is also on amiodarone drip as per protocol. EP was also consulted by Cardiology. He does not have any home medications at this time. Encouraged ambulation. Regular diet. Xarelto for DVT prophylaxis. MD GUERO Amaya/KATEL /[id number]
[2019-01-20 04:29] LABS: CREATINE KINASE MB 0.7 ng/mL (0-5.0)
[2019-01-20] MEDS: METOPROLOL TARTRATE 25 MG TAB PO SCH ×3 (05:34→17:33)
[2019-01-20 07:06] LABS: BASOPHILS # (AUTO) 0.1 (0.0-0.1); BASOPHILS % 0.9 % (0.0-1.0); EOSINOPHILS # (AUTO) 0.4 (0.0-0.4); EOSINOPHILS % 4.6 % (0.0-6.0); HEMATOCRIT 39.5 % (38.2-49.6); HEMOGLOBIN 13.7 g/dL (14.0-18.0); LYMPHOCYTES # (AUTO) 2.6 (1.0-3.2); LYMPHOCYTES % 31.7 % (18.0-39.1); MEAN CORPUSCULAR HEMOGLOBIN 30.1 pg (28-32); MEAN CORPUSCULAR HGB CONC 34.7 g/dL (31-35); MEAN CORPUSCULAR VOLUME 86.8 fL (81-99); MONOCYTES # (AUTO) 0.7 (0.2-0.8); MONOCYTES % 8.8 % (4.4-11.3); NEUTROPHILS # (AUTO) 4.4 (2.1-6.9); NEUTROPHILS % 53.9 % (38.7-80.0); PLATELET COUNT 280 x10e3/uL (140-360); RED BLOOD COUNT 4.55 x10e6/uL (4.3-5.7); RED CELL DISTRIBUTION WIDTH 12.3 % (11.7-14.4)
[2019-01-20 07:17] LABS: ALANINE AMINOTRANSFERASE 28 IU/L (0-55); ALBUMIN 3.8 g/dL (3.5-5.0); ALBUMIN/GLOBULIN RATIO 1.5 (0.8-2.0); ALKALINE PHOSPHATASE 50 IU/L (40-150); ANION GAP 16.9 mmol/L (8-16); BLOOD UREA NITROGEN 13 mg/dL (7-26); BUN/CREATININE RATIO 12 (6-25); CALCIUM 9.4 mg/dL (8.4-10.2); CARBON DIOXIDE 21 mmol/L (22-29); CHLORIDE 107 mmol/L (98-107); CHOL/HDL RATIO 8.1 (3.9-4.7); CHOLESTEROL 194 MD/DL (0-199); CREATININE, SERUM 1.05 mg/dL (0.72-1.25); EST GLOMERULAR FILTRATION RATE > 60 ML/MIN (60-); GLUCOSE 120 mg/dL (74-118); HDL CHOLESTEROL 24 MG/DL (40-60); POTASSIUM 3.9 mmol/L (3.5-5.1); SODIUM 141 mmol/L (136-145); TRIGLYCERIDES 500 MG/DL (0-149)
[2019-01-20 07:49] VITALS: BP 116/72
[2019-01-20] MEDS ORDERED: ASPIRIN 81 MG ENTERIC COATED PO SCH (09:00)
[2019-01-20 09:16] VITALS: BP 116/72
[2019-01-20 10:51] LABS: CREATINE KINASE MB 0.7 ng/mL (0-5.0)
[2019-01-20 16:00] VITALS: BP 119/76
[2019-01-20] MEDS: RIVAROXABAN 20 MG TABLET PO SCH (17:00)
--- NOTE | 2019-01-20 17:10 | NUR ---
Dr. Hammonds in to see patient received orders to hold Xarelto.
--- NOTE | 2019-01-20 17:50 | NUR ---
Patient discharged verbalized understanding of d/c instructions.
--- NOTE | 2019-01-20 18:44 | Consultation ---
DATE OF CONSULTATION: 01/20/2019 REQUESTING PHYSICIAN: Dr. Mccall. REASON FOR CONSULTATION: Evaluation of the patient for atrial fibrillation/atrial flutter. CHIEF COMPLAINT: Palpitations. HISTORY OF PRESENT ILLNESS: Mr. Herrera is a 38-year-old gentleman, with no significant past medical history, who was reporting daylong symptoms of palpitations, tingling in his hands and fingers, which sustained. He had called 911 and as the EMS arrived, he was found to have a heart rate in the 200s, which was found to be 1:1 atrial flutter. He was noted to be in atrial fibrillation/atrial flutter for the entire day that day. He was placed in the ICU, started on intravenous amiodarone and Cardizem and he converted this morning at 7:00 a.m. He is now in sinus rhythm, heart rate is in the 70s, his symptoms have subsided. PAST MEDICAL HISTORY: None. SOCIAL HISTORY: Only for moderate alcohol use. No tobacco or drug abuse. ALLERGIES: NO KNOWN DRUG ALLERGIES. FAMILY HISTORY: Positive for atrial fibrillation. His father has had 2 ablations in the past. REVIEW OF SYSTEMS: A 12-point review of systems is within normal limits. PHYSICAL EXAMINATION: VITAL SIGNS: Blood pressure is 127/70, heart rate is 70, respiratory rate is 20, and O2 saturations are 100% on room air. HEENT: Mucous membranes are pink, moist, anicteric, acyanotic. Pupils are equal, round, and reactive to light. Head is normocephalic, atraumatic. Thyroid is without any thyromegaly or masses. NECK: Supple. CARDIOVASCULAR: S1 and S2 audible. Regular rate and rhythm are noted. No murmur, rubs, or gallops are noted. LUNGS: Clear to auscultation bilaterally. ABDOMEN: Soft, nondistended, and nontender. Bowel sounds are in all 4 quadrants. EXTREMITIES: These are without peripheral edema. 2+ pulses in all 4 extremities. NEUROLOGIC: He is alert and oriented x3 with no focal neurologic deficits. LABORATORY STUDIES: Reviewed. Echocardiogram shows normal left ventricular ejection fraction, normal atrial sizes, no valvular abnormalities. EKGs were reviewed. IMPRESSION: Mr. Herrera is a 38-year-old gentleman with first episode of atrial fibrillation/atrial flutter. His original presentation was 1:1 atrial flutter with heart rates in the 220s. He is now converted to sinus rhythm on intravenous amiodarone and on IV Cardizem. He has been started on metoprolol and aspirin. I have had a long discussion with him about his options for atrial fibrillation/atrial flutter including both medical management, rate control, as well as rhythm control with antiarrhythmic drug therapy as well as zcru-pd-vav-pocket approach for medical management of his atrial fibrillation. I have also discussed ablation strategies for atrial fibrillation. His father has had 2 previous ablations in the past for atrial fibrillation, therefore he has very well worsened the options for atrial fibrillation. The risks, benefits, and alternatives were discussed with him at great length. He is agreeable to consider atrial fibrillation ablation. What I recommended at this point is to continue with just metoprolol and aspirin. I will give him some flecainide as a ngsm-wl-oql-pocket approach since he is already on beta-blockers, just in case he has another very rapid episode of atrial fibrillation/atrial flutter, so he can convert himself with the pills of flecainide. I will have him come to follow up with me in the office in a week and we will plan his atrial fibrillation ablation as an outpatient. Thank you for the consultation. MD SEAN Torres/[place] /[id number]
--- NOTE | 2019-01-21 00:20 | Discharge Summary ---
FINAL DISCHARGE DIAGNOSES: 1. Atrial fibrillation and possibly atrial flutter, now status post normal sinus rhythm. 2. Chest pressure secondary to atrial fibrillation and possibly atrial flutter. CONSULTANTS: Cardiology and EP. PHYSICAL EXAMINATION: VITAL SIGNS: Temperature is 98, pulse 69, respiratory rate is 20, blood pressure 119/76, pulse ox 98% on room air. LABORATORY DATA: Lab findings show white count 8.2, hemoglobin 13.7, hematocrit 39, and platelets of 280. Coagulation; PT is 12, INR 0.89, PTT 30. D-dimer is less than 100. Chemistry; sodium 141, potassium 3.9, chloride 107, bicarb 21, anion gap is 16, BUN 13, creatinine is 1, glucose 120, calcium 9.4, total bilirubin was 0.6, AST 16, ALT 20, alkaline phosphatase 50. Troponins were all negative. Total protein 6.3, albumin 3.8, LDL not recorded, TSH is 1.9. Urinalysis was negative. Toxicology screen, urine drug screen was found to be negative. MICROBIOLOGY: Urine culture was negative. IMAGING STUDIES: Chest x-ray was found to be negative. 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 While here, he was found to have heart rates greater than 200, found to be in atrial flutter, atrial fibrillation according to the reports and was given IV medications with much improvement. He was then started on amiodarone drip and transferred to [facility]. Cardiology was consulted. He was then converted initially to oral beta-blockers. EP was consulted. After further discussion and after EP evaluating him, it was felt that first episode had atrial fibrillation, atrial flutter, but did convert to normal sinus rhythm. He did complete his amiodarone infusion. After further discussion according to the notes by EP, the patient opted for a loxq-om-[id number]-pocket approach for his atrial fibrillation and he wanted to have outpatient ablation at a later date. He reports that his father had similar issues with his atrial fibrillation, had him ablated and he had good results. At this time, the patient was discharged on flecainide, ctyu-bg-maa-pocket approach, and was discharged on oral beta-blockers as well as aspirin. The patient was advised to follow up as an outpatient in 1 week with EP. He was educated in terms of once he feels his heart rate is elevated to take the flecainide as needed. He verbalized understanding according to the records and agreed with the EP's recommendations. On discharge, the patient was doing well, back to normal baseline with no other complaints. On the day of discharge, vital signs were stable, labs reviewed and stable. The patient seen and evaluated, examined thoroughly on the day of discharge. No other complaints. The patient verbalized understanding and agrees to plan of care to follow up accordingly as an outpatient with the primary care physician in 1 week and EP doctor and clerical warehouseman in 1 week time. The patient was advised not to take any caffeine or anything to stimulate his heart rate. He verbalized understanding. MEDICATIONS: See med reconciliation form. DISPOSITION: Home. CONDITION: Stable. DIET: Heart healthy. In the event of any worsening symptoms, the patient was come back to the ED for further evaluation. Discharge summary took greater than 35 minutes. MD GUERO Amaya/MODJennifer /[id number]
== END 2019-01-20 17:15 | disposition home or self-care (01) | DRG 310 ==
LOC: ER 12:00 → ERHOLD 13:50 → IMCU 16:49
PROVIDERS: ADMIT Internal Medicine; ATTEND Internal Medicine
DX: I48.91 Unspecified atrial fibrillation (principal); I48.92 Unspecified atrial flutter; R07.9 Chest pain, unspecified
CPT/HCPCS: 36415; 71045; 80053; 80061; 80307; 81001; 82550; 82553; 83735; 83880; 84443; 84484; 85025; 85379; 85610; 85730; 87086; 93005; 93306; 99285; J1650; J2270; J2405; J7030